=== PATIENT | male | born 1960 | race Caucasian/White ===

== ENCOUNTER 2019-10-07 13:55 | Emergency (ER) | payer BC, SELFPAY ==
[2019-10-07 14:24] VITALS: BP 170/100; PULSE 85; RESP 16; TEMP 36.5; O2SAT 100
--- NOTE | 2019-10-07 14:24 | ED.SKABFB ---
HPI - Skin/Abscess/Foreign Bdy General Chief complaint: Skin/Abscess/Foreign Body Stated complaint: insect bite Time Seen by Provider: 10/07/19 14:24 Source: patient and RN notes reviewed History of Present Illness HPI narrative: Patient is a 59-year-old male that presents the urgent care with complaints of redness and swelling to the left elbow. Patient states that he was working under a trailer over 1 week ago and noticed a scab to the left elbow. Patient states he removed the scab and then noticed some swelling and redness. Patient states that last night the swelling and redness seem to get worse as well as more painful. Patient reports a past medical history of stroke and is supposed to be on several chronic medications including Plavix, atorvastatin, daily aspirin and lisinopril. Patient has not taken his medication in 2 months. Patient states he has been trying to get a hold of his PCP and no one will return his phone calls . Patient denies of any chest pain or headaches. Patient has not used anything [id number] for his current complaint. No other acute complaints. No acute distress noted. Patient read the plan of care. Related Data Home Medications Medication Instructions Recorded Confirmed aspirin 81 mg DAILY 10/07/19 10/07/19 Allergies Allergy/AdvReac Type Severity Reaction Status Date / Time Penicillins Allergy Unknown Hives Verified 10/07/19 14:26 Review of Systems Review of Systems: Narrative: CONSTITUTIONAL: Denies fever, chills, or sweats. EYES: Denies visual changes, redness, or discharge. ENT: Denies rhinorrhea, congestion, sore throat, or otalgia. CARDIOVASCULAR: Denies chest pain, palpitations, or edema. RESPIRATORY: Denies cough or dyspnea. GASTROINTESTINAL: Denies abdominal pain, nausea, vomiting, or diarrhea. GENITOURINARY: Denies dysuria or hematuria. SKIN: Denies rash or itching. MUSCULOSKELETAL: Reports of redness, swelling, pain to the left elbow NEUROLOGIC: Denies headache, numbness, or weakness. All other systems reviewed are negative, except as documented in HPI. [facility] Social History Social History Alcohol intake: current Gender identity (if verbalized by the patient): Male Comments At the time of my signature, I reviewed and agree with the nursing past medical, surgical, social, and family history. There is no relevant family history pertinent to the patient complaint. Exam Narrative: Exam Narrative: GENERAL: This is a well-nourished, well-developed patient, in no apparent distress. HEAD: normocephalic, atraumatic. EYES: PERRL. Sclera clear/white. Vision is grossly intact. EARS: External ears normal NOSE: External nose normal with no obvious nasal discharge THROAT: Mucous membranes moist NECK: Neck supple CARDIOVASCULAR: Regular rate and rhythm without murmurs, gallops, or rubs. RESPIRATORY: Clear to auscultation. Breath sounds equal bilaterally. No wheezes, rales, or rhonchi. SKIN: warm, intact with no suspicious lesions or rash, good texture and turgor. NEURO: awake, alert, and oriented to person, place and time. There were no obvious focal neurologic abnormalities. EXTREMITIES: Mild to moderate redness and swelling to the left elbow with moderate pain on assessment. Range of motion within normal limits however exacerbates pain. Positive strong left radial pulse with capillary refill less than 2 seconds. Course Vital Signs Vital signs: Vital Signs Temperature 97.7 F 10/07/19 14:24 Pulse Rate 85 10/07/19 14:24 Respiratory Rate 16 10/07/19 14:24 Blood Pressure 170/100 H 10/07/19 14:24 Pulse Oximetry 100 10/07/19 14:24 Temperature 97.7 F 10/07/19 14:24 Pulse Rate 85 10/07/19 14:24 Respiratory Rate 16 10/07/19 14:24 Blood Pressure 170/100 H 10/07/19 14:24 Pulse Oximetry 100 10/07/19 14:24 Reviewed?patient is informed that they may have pre-hypertension or hypertension based on a blood pressure reading in the department. I recom
== END 2019-10-07 15:01 | disposition left against medical advice (07) ==
PROVIDERS: Emergency Provider Nurse Practitioner Family
DX: L03.114 Cellulitis of left upper limb (principal); I10 Essential (primary) hypertension; Z86.73 Personal history of transient ischemic attack (TIA), and cerebral infarction without residual deficits
CPT/HCPCS: 99213; G0463

== ENCOUNTER 2023-03-02 14:40 | Emergency (ER) | payer BC, SELFPAY ==
[2023-03-02 14:59] VITALS: BP 97/70; PULSE 65; RESP 16; TEMP 36.3; O2SAT 99
--- NOTE | 2023-03-02 15:23 | ED.URI ---
HPI - URI/Sore Throat General Chief Complaint: Upper Respiratory Infection Stated Complaint: Bodyaches Time Seen by Provider: 03/02/23 15:05 Source: patient Mode of arrival: ambulatory Limitations: no limitations History of Present Illness HPI Narrative: Oscar is a 62-year-old male patient presenting to the clinic today with complaints of body aches times 2-3 days. He reports no known fever or chills. States that he feels as though he has been beaten. Denies any runny nose, cough, sore throat, shortness of breath, or chest pain. States he has been eating and drinking well. Denies any nausea, vomiting, or diarrhea. Does report some mild abdominal discomfort to the lower abdomen. Denies any urinary symptoms. Denies any bloody stools. Last bowel movement yesterday normal. Related Data Home Medications Medication Instructions Recorded Confirmed aspirin 81 mg tablet,delayed 81 mg DAILY 10/07/19 03/02/23 release Allergies Allergy/AdvReac Type Severity Reaction Status Date / Time Penicillins Allergy Unknown Hives Verified 03/02/23 14:43 Review of Systems Review of Systems: Pertinent positives per HPI. Patient denies any fever, chills, rash, headache, visual changes, dizziness, cough, shortness of breath, chest pain, palpitations, nausea, vomiting, diarrhea, constipation, or any urinary issues. [facility] Past Medical History Medical History (Updated 03/02/23 @ 15:34 by Jairo Chui APRN) Hypertension Screening cholesterol level Screening PSA (prostate specific antigen) Family History Family History Father No problems noted. Mother No problems noted. Social History Social History Smoking packs per day: 0.25 Smoking cigarettes per day: 5.0 Years smoked: 40 Smoking pack-years: 10.00 Smoking status: Current every day smoker Tobacco type: cigarettes Alcohol intake: former Alcohol use details: Does not drink Substance use: never Lack of Transportation: YES Lack of Food: Never True Concerned About Future Housing: No Difficulty Paying Gas/Electric Bills: No Difficulty Paying for Meds: No Currently Unemployed: No Education: High School Diploma/GED Difficulty w/ Childcare or Family Care: No Occupation/Education: occupation Additional occupation/education comments: [employer] Gender identity (if verbalized by the patient): Male Comments At the time of my signature, I reviewed and agree with the nursing past medical, surgical, social, and family history. There is no relevant family history pertinent to the patient complaint. Exam Narrative: General: Well-developed, thin, in no apparent distress Head: Normocephalic, atraumatic Eyes: Pupils equally round and reactive to light bilaterally, EOM intact, sclera and conjunctive clear, no discharge, lids normal Ears: TMs intact and clear, ear canals clear, no drainage, grossly hearing normal. Nose: Nares patent, no discharge, no inflammation, no sinus tenderness. Mouth: Oral pharynx without lesions or masses, good dentition, MMM. Neck: Supple, trachea midline, no enlargement of anterior or posterior cervical nodes, no thyroid masses or goiter palpable. Cardio: Regular rate and rhythm, s1 and s2 normal, no murmur appreciated. Resp: Clear to auscultation bilaterally, no rhonchi, rales, wheezing or rubs Abdomen: Soft, pliable, nondistended, bowel sounds present all 4 quadrants, mild tenderness to palpation, no organomegaly, no CVAT tenderness. Course Course Emergency Course: Portions of this record may have been created with voice recognition software. Level of Care: Express Care Visit Vital Signs Vital signs: Vital Signs Temperature 36.3 C L 03/02/23 14:59 Pulse Rate 65 03/02/23 14:59 Respiratory Rate 16 03/02/23 14:59 Blood Pressure 97/70 L 03/02/23 14:5
== END 2023-03-02 15:39 | disposition home or self-care (01) ==
PROVIDERS: Emergency Provider Nurse Practitioner Family; PCP Emergency Medicine
DX: J10.1 Influenza due to other identified influenza virus with other respiratory manifestations (principal); Z20.822 Contact with and (suspected) exposure to COVID-19; F17.210 Nicotine dependence, cigarettes, uncomplicated; I10 Essential (primary) hypertension; Z79.82 Long term (current) use of aspirin
CPT/HCPCS: 87426; 87804; 99213; C9803; G0463